=== PATIENT | female | born 1965 | race Caucasian/White ===

== ENCOUNTER 2024-01-25 05:04 | Day surgery (SDC) | payer OTHER ==
[~2024-01-25] VITALS: Ht 167.6 cm; Wt 79.4 kg
[~2024-01-25 05:04] MED LIST: PROZAC10 M1 PO; REMERON30 M1 PO
[2024-01-25] MEDS ORDERED: CEFAZOLIN SODIUM 1,000 MG VIAL ONE ×2 (06:00→16:11)
[2024-01-25] MEDS ORDERED: ENOXAPARIN SODIUM 40 MG/0.4 ML SYRINGE SUBCUTANEO ONE (06:01)
[2024-01-25] MEDS ORDERED: EPINEPHRINE HCL/PF 1 MG/ML AMPUL ONE (07:32)
[2024-01-25] MEDS ORDERED: LIDOCAINE HCL 1%/EPINEPHRINE 20ML VIAL IJ ONE ×2 (07:34→07:40)
[2024-01-25] MEDS ORDERED: BUPIVACAINE HCL 0.5% 50ML VIAL ONE (07:51)
[2024-01-25] MEDS ORDERED: TRANEXAMIC ACID 100MG/1ML (1000MG) AMPUL IV ONE (09:19)
[2024-01-25] MEDS ORDERED: POVIDONE-IODINE 118 ML BOTT TOP ONE ×2 (09:31→14:12)
[2024-01-25] MEDS ORDERED: ENALAPRILAT DIHYDRATE 1.25 MG/ML VIAL IV ONE (10:05)
[2024-01-25] MEDS ORDERED: TRANEXAMIC ACID 100MG/1ML (1000MG) AMPUL IV SCH ×2 (15:30→15:45)
[2024-01-25] MEDS ORDERED: SUGAMMADEX SODIUM 200 MG/2 ML VIAL IV ONE (16:11)
[2024-01-25 18:37] LABS: MEAN CELL VOLUME 82.2 fL (80.00-100.00); MEAN CORPUSCULAR HEMOGLOBIN 26.6 pg (27.00-32.0); MEAN CORPUSCULAR HGB CONC 32.3 g/dl (32.0-36.0); PLATELET COUNT 272 K/uL (150-450); RED CELL DISTRIBUTION WIDTH 15.5 % (11.5-14.5)
== END 2024-01-25 20:50 | disposition home or self-care (01) ==
LOC: CIR.AMB 05:04
PROVIDERS: ATTEND Specialist
DX: E65 Localized adiposity (principal); N64.81 Ptosis of breast